=== PATIENT | female | born 1995 | race Caucasian/White ===

== ENCOUNTER 2020-03-30 07:32 | Day surgery (SDC) | payer MEDICAID ==
[~2020-03-30] VITALS: Ht 170.2 cm; Wt 57.7 kg
[2020-03-30 08:00] LABS: HEMATOCRIT 44.4 % (36.0-48.0); HEMOGLOBIN 14.6 g/dL (12-16); MCH 29.9 pg (26.0-34.0); MCHC 32.9 g/dL (31.0-37.0); MEAN PLATELET VOLUME 10.2 fL (7.4-10.4); RBC 4.88 10x6/uL (4.00-5.40); RDW 12.6 % (11.5-14.5); WBC 5.9 10x3/uL (4.8-10.8)
[2020-03-30 08:17] LABS: HCG SERUM NEGATIVE (NEGATIVE)
[2020-03-30 08:26] VITALS: BP 112/67; Ht 170.2 cm; Wt 57.7 kg
[2020-03-30] MEDS ORDERED: HYDROCODON-ACE1 EA10 PO (10:56)
--- NOTE | 2020-04-04 11:16 | OP ---
PATIENT NAME: VELIA KEMP MEDICAL RECORD: [id number] :95 LOCATION:D.OPS ADMISSION DATE: SURGEON: HIRA SAMUELS MD DATE OF OPERATION: 03/30/2020 PREOPERATIVE DIAGNOSIS: Painful fat necrosis anterior medial aspect of the left lower extremity. POSTOPERATIVE DIAGNOSIS: Painful fat necrosis anterior medial aspect of the left lower extremity. PROCEDURE: Excision of large area of painful fat necrosis. SURGEON: Hira Samuels MD ANESTHESIA: General. INTRAOPERATIVE COMPLICATIONS: None. SUMMARY OF PATHOLOGIC FINDINGS: Consistent with preoperative diagnosis, the patient had a very large area of fat necrosis, some hard and some soft, the area of most prominence was excised. OPERATIVE SUMMARY IN DETAIL: After obtaining the appropriate preoperative orthopedic surgery consent as well as anesthetic consultation, evaluation and clearance, the patient was brought to the operating room and placed on the operating table in a supine position. After adequate general laryngeal mask airway was administered, tourniquet was placed on the proximal aspect of the left lower extremity. Left lower extremity was then prepped and draped in routine sterile fashion. The tourniquet was not utilized during this case. A very small incision was made over the clearly palpable prominent area. This dissection was taken down to the area of prominence. It was excised in its entirety and sent to pathology for review. Once it was felt that the entire area of hardness was removed, the wound was then irrigated and closed with 2-0 Vicryl followed by 4-0 Prolene. Sterile dressings were applied. The patient was awakened and taken to the recovery room in stable condition. All final needle and sponge counts were correct. TRANSINT:[id number] Voice Confirmation ID: [id number] DOCUMENT ID: [id number] HIRA SAMUELS MD at [id number] CC: [id number] DICTATION DATE: 04/03/20 1651 ROOM SERVICE WAITER: 04/04/20 [id number] [facility] 03/30/[address] [id number]
== END 2020-03-30 13:15 | disposition home or self-care (01) ==
LOC: D.OPS 07:32 → D.PAN 12:30 → D.OPS 13:15
PROVIDERS: Anesthesiology; ATTEND Orthopaedic Surgery
DX: M25.562 Pain in left knee (principal); T79.8XXA Other early complications of trauma, initial encounter; M79.89 Other specified soft tissue disorders